=== PATIENT | female | born 2000 | race Caucasian/White ===

== ENCOUNTER 2024-05-02 16:16 | Inpatient (IN) | payer MEDICAID, OTHER ==
[~2024-05-02] VITALS: Ht 162.6 cm; Wt 46.8 kg
[2024-05-02 20:37] VITALS: BP 121/79; PULSE 108; RESP 16; TEMP 98.4; O2SAT 98
[2024-05-02 22:00] VITALS: BP 146/92; PULSE 106; RESP 18; TEMP 98.7; O2SAT 97
[2024-05-02 22:14] VITALS: RESP 18; O2SAT 98
[2024-05-02] MEDS ORDERED: potassium Cl 40MEQ/1/2NS 520ml 520 ML IV PRN (23:20)
[2024-05-02] MEDS ORDERED: acetaminophen 325mg tablet PO PRN ×2 (23:20)
[2024-05-02] MEDS ORDERED: magnesium Cl slow-release 64mg tablet PO PRN (23:20)
[2024-05-02] MEDS ORDERED: magnesium sulf-water 4G/100mL 100 ML IV PRN (23:20)
[2024-05-02] MEDS ORDERED: morphine 2 MG/ML inj. syringe IV PRN (23:20)
[2024-05-02] MEDS ORDERED: mag hydrox/Alum hydrox/simeth 30ml oral suspension PO PRN (23:20)
[2024-05-02] MEDS ORDERED: potassium Cl 20 mEq SR tablet PO PRN ×2 (23:20)
[2024-05-02] MEDS ORDERED: magnesium hydroxide 30ml (MOM) UD suspension PO PRN (23:20)
[2024-05-02] MEDS ORDERED: magnesium sulf-water 2g/50mL 50 ML IV PRN (23:20)
[2024-05-02] MEDS ORDERED: traMADol 50MG tablet PO PRN (23:40)
[2024-05-02] MEDS: morphine 2 MG/ML inj. syringe IV PRN (23:51)
[2024-05-02] MEDS: normal saline 1000ml 1,000 ML IV ONE (23:53)
[2024-05-02] MEDS: aspirin 325mg tablet PO ONE (23:54)
[2024-05-02 23:59] LABS: BASOPHILS % (AUTO) 0.4 % (0-1); EOSINOPHILS # (AUTO) 0.1 X10'3 (0-0.9); EOSINOPHILS % (AUTO) 0.7 % (0-6); HEMATOCRIT 42.3 % (35.0-45.0); HEMOGLOBIN 14.6 g/dl (12.0-16.0); LYMPHOCYTES # (AUTO) 2.9 X10'3 (1.1-4.8); LYMPHOCYTES % (AUTO) 32.2 % (21-51); MEAN CORPUSCULAR HEMOGLOBIN 29.3 PG (27.0-31.0); MEAN CORPUSCULAR HGB CONC 34.6 g/dL (33.0-36.5); MEAN CORPUSCULAR VOLUME 84.5 FL (78-98); MONOCYTES # (AUTO) 0.6 X10'3 (0-0.9); NEUTROPHILS # (AUTO) 5.3 X10'3 (1.8-7.7); NEUTROPHILS % (AUTO) 59.7 % (42-75); PLATELET COUNT 327 X10'3 (140-440); RED BLOOD COUNT 5.01 X10'6 (4.20-5.60); RED CELL DISTRIBUTION WIDTH 13.3 % (11.5-14.5); WHITE BLOOD COUNT 8.9 X10'3 (4.5-11.0)
[2024-05-03] VITALS (8 sets, daily range): BP systolic 108–129; BP diastolic 62–85; PULSE 59–109; RESP 14–18; TEMP 97.9–98.8; O2SAT 96–99
[2024-05-03 00:16] LABS: ALANINE AMINOTRANSFERASE 7 U/L (12-78); ALBUMIN 4.1 G/DL (3.4-5.0); ALBUMIN/GLOBULIN RATIO 1.1 (1.1-1.5); ALKALINE PHOSPHATASE 63 IU/L (46-116); ANION GAP 11 (8-16); ASPARTATE AMINO TRANSFERASE 14 U/L (10-37); BILIRUBIN,TOTAL 0.2 MG/DL (0.1-1.0); BLOOD UREA NITROGEN 17 MG/DL (7-18); BUN/CREATININE RATIO 25.4 (10.0-20.0); CALCIUM 9.3 MG/DL (8.5-10.1); CHLORIDE 104 MMOL/L (99-107); CREATININE 0.67 MG/DL (0.40-0.90); GLUCOSE 98 MG/DL (70-104); POTASSIUM 3.8 MMOL/L (3.5-5.1); SODIUM 139 MMOL/L (135-145); TOTAL PROTEIN 7.8 G/DL (6.4-8.2); eGFR > 90 ML/MIN
[2024-05-03 00:23] LABS: PRO BRAIN NATRIURETIC PEPTIDE < 30 PG/ML (0-125)
[2024-05-03 07:14] LABS: BASOPHILS % (AUTO) 0.5 % (0-1); EOSINOPHILS # (AUTO) 0.1 X10'3 (0-0.9); EOSINOPHILS % (AUTO) 1.4 % (0-6); HEMATOCRIT 39.5 % (35.0-45.0); HEMOGLOBIN 13.4 g/dl (12.0-16.0); LYMPHOCYTES % (AUTO) 43.4 % (21-51); MEAN CORPUSCULAR HEMOGLOBIN 28.9 PG (27.0-31.0); MEAN PLATELET VOLUME 8.8 FL (7.4-10.4); MONOCYTES # (AUTO) 0.7 X10'3 (0-0.9); MONOCYTES % (AUTO) 9.4 % (2-12); NEUTROPHILS # (AUTO) 3.2 X10'3 (1.8-7.7); NEUTROPHILS % (AUTO) 45.3 % (42-75); PLATELET COUNT 311 X10'3 (140-440); RED BLOOD COUNT 4.65 X10'6 (4.20-5.60); RED CELL DISTRIBUTION WIDTH 13.1 % (11.5-14.5)
[2024-05-03 07:54] LABS: ALANINE AMINOTRANSFERASE 17 U/L (12-78); ALBUMIN 3.5 G/DL (3.4-5.0); ALBUMIN/GLOBULIN RATIO 1.1 (1.1-1.5); ALKALINE PHOSPHATASE 51 IU/L (46-116); ANION GAP 7 (8-16); ASPARTATE AMINO TRANSFERASE 14 U/L (10-37); BILIRUBIN,TOTAL 0.3 MG/DL (0.1-1.0); BLOOD UREA NITROGEN 15 MG/DL (7-18); BUN/CREATININE RATIO 21.7 (10.0-20.0); CALCIUM 8.6 MG/DL (8.5-10.1); CHLORIDE 108 MMOL/L (99-107); CHOL/HDL RATIO 3.3 (0.00-4.99); CHOLESTEROL 115 MG/DL (0-200); CREATININE 0.69 MG/DL (0.40-0.90); FREE T4 (FREE THYROXINE) 1.01 NG/DL (0.73-1.40); GLUCOSE 84 MG/DL (70-104); HDL CHOLESTEROL 35 MG/DL (35-60); LDL CHOLESTEROL 68 MG/DL (50-100); MAGNESIUM 2.3 MG/DL (1.5-2.4); PHOSPHORUS 3.7 MG/DL (2.3-4.5); POTASSIUM 3.9 MMOL/L (3.5-5.1); SODIUM 139 MMOL/L (135-145); THYROID STIMULATING HORMONE 3.34 ulU/ml (0.34-4.50); TOTAL CARBON DIOXIDE 24.5 MMOL/L (24-32); TOTAL PROTEIN 6.6 G/DL (6.4-8.2); TRIGLYCERIDES 94 MG/DL (20-135); eGFR > 90 ML/MIN
[2024-05-03] MEDS: K and/or MAG REPLACEMENT MC SCH (08:00)
[2024-05-03] MEDS: enoxaparin 40mg/0.4ml syringe SUBCUT SCH (08:00)
[2024-05-03] MEDS: pantoprazole 40mg Tablet.DR PO SCH (08:11)
[2024-05-03] MEDS: atorvastatin 20mg tablet PO SCH (08:11)
[2024-05-03] MEDS: aspirin 81mg, enteric-coated 1 TAB TABLET.DR PO SCH (08:12)
[2024-05-03] MEDS: docusate sod 100mg capsule PO SCH (08:13)
[2024-05-03] MEDS: metoprolol succinate 25mg (24-HOUR) SR. Tablet PO SCH (08:13)
[2024-05-03 08:16] LABS: HEMOGLOBIN A1C 5.3 % (4.5-6.2)
[2024-05-03] MEDS: ondansetron/PF 4mg/2ml inj IV PRN (13:30)
[2024-05-03] MEDS ORDERED: diatr meglu/diatrizoate 30ml oral sol.-(3 dose) bottle PO SCH (18:00)
[2024-05-03] MEDS: mirtazapine 15mg tablet PO SCH (20:19)
[2024-05-04 02:00] VITALS: BP 122/72; PULSE 75; RESP 16; TEMP 97.6; O2SAT 97
[2024-05-04 06:00] VITALS: BP 128/73; PULSE 18; RESP 18; TEMP 98.7; O2SAT 98
[2024-05-04 07:10] LABS: APTT 30 SECONDS (22-32); INR 1.1 INR; PROTHROMBIN TIME 11.3 SECONDS (9.0-12.0)
[2024-05-04 07:21] LABS: BASOPHILS % (AUTO) 0.4 % (0-1); EOSINOPHILS # (AUTO) 0.1 X10'3 (0-0.9); EOSINOPHILS % (AUTO) 1.2 % (0-6); HEMATOCRIT 44.4 % (35.0-45.0); HEMOGLOBIN 15.1 g/dl (12.0-16.0); LYMPHOCYTES # (AUTO) 2.8 X10'3 (1.1-4.8); LYMPHOCYTES % (AUTO) 35.8 % (21-51); MEAN CORPUSCULAR HEMOGLOBIN 29.3 PG (27.0-31.0); MEAN CORPUSCULAR VOLUME 86.2 FL (78-98); MEAN PLATELET VOLUME 8.5 FL (7.4-10.4); MONOCYTES # (AUTO) 0.7 X10'3 (0-0.9); MONOCYTES % (AUTO) 8.2 % (2-12); NEUTROPHILS # (AUTO) 4.3 X10'3 (1.8-7.7); NEUTROPHILS % (AUTO) 54.4 % (42-75); PLATELET COUNT 377 X10'3 (140-440); RED BLOOD COUNT 5.15 X10'6 (4.20-5.60); RED CELL DISTRIBUTION WIDTH 13.3 % (11.5-14.5); WHITE BLOOD COUNT 7.9 X10'3 (4.5-11.0)
[2024-05-04 07:27] LABS: ALANINE AMINOTRANSFERASE 16 U/L (12-78); ALBUMIN/GLOBULIN RATIO 1.1 (1.1-1.5); ALKALINE PHOSPHATASE 60 IU/L (46-116); ANION GAP 9 (8-16); ASPARTATE AMINO TRANSFERASE 14 U/L (10-37); BILIRUBIN,TOTAL 0.3 MG/DL (0.1-1.0); BLOOD UREA NITROGEN 15 MG/DL (7-18); BUN/CREATININE RATIO 18.8 (10.0-20.0); CALCIUM 9.6 MG/DL (8.5-10.1); CHLORIDE 103 MMOL/L (99-107); GLUCOSE 94 MG/DL (70-104); MAGNESIUM 2.3 MG/DL (1.5-2.4); PHOSPHORUS 3.9 MG/DL (2.3-4.5); POTASSIUM 4.2 MMOL/L (3.5-5.1); SODIUM 137 MMOL/L (135-145); TOTAL CARBON DIOXIDE 24.9 MMOL/L (24-32); TOTAL PROTEIN 7.7 G/DL (6.4-8.2); eCRCL 79 ML/MIN; eGFR 87 ML/MIN
[2024-05-04 08:00] VITALS: RESP 18; O2SAT 98
[2024-05-04] MEDS: IOHEXOL 12MG/ML oral solution 500 ML BOTTLE PO ONE (08:17)
[2024-05-04] MEDS ORDERED: MIRT7.5T11 PO (10:40)
[2024-05-04] MEDS ORDERED: FAMO20TA79 PO (10:43)
[2024-05-04] MEDS ORDERED: CLON0.1T2 PO (10:45)
[2024-05-04 11:00] VITALS: BP 109/81; PULSE 48; RESP 18; TEMP 97.3; O2SAT 96
== END 2024-05-04 11:25 | disposition home or self-care (01) | DRG 242 ==
LOC: UNDOADMIN 20:31 → PCU 3S 20:31
PROVIDERS: ADMIT Family Medicine; ATTEND Internal Medicine
DX: K22.3 Perforation of esophagus (principal); J98.51 Mediastinitis; I10 Essential (primary) hypertension; F32.A Depression, unspecified; K21.9 Gastro-esophageal reflux disease without esophagitis
CPT/HCPCS: 36415; 71045; 71250; 74150; 80053; 80061; 83036; 83735; 83880; 84100; 84145; 84439; 84443; 84484; 85025; 85610; 85730; 87081; 93005; G0378; J1650; J2270; J2405; J7030